=== PATIENT | female | born 1990 | race Caucasian/White ===

== ENCOUNTER 2024-08-06 12:35 | Emergency (ER) | payer OTHER ==
[~2024-08-06] VITALS: Ht 162.6 cm; Wt 77.1 kg
[2024-08-06 12:41] VITALS: BP 141/92; PULSE 92; RESP 18; TEMP 97.4; O2SAT 100
[2024-08-06 13:33] VITALS: BP 136/91; PULSE 90; RESP 20; TEMP 97.4; O2SAT 99
== END 2024-08-06 13:43 | disposition short-term general hospital (02) ==
LOC: MED 12:35
DX: O60.03 Preterm labor without delivery, third trimester (principal); O24.113 Pre-existing type 2 diabetes mellitus, in pregnancy, third trimester; O10.913 Unspecified pre-existing hypertension complicating pregnancy, third trimester; Z3A.36 36 weeks gestation of pregnancy; Z98.890 Other specified postprocedural states
CPT/HCPCS: 82948; 99285